=== PATIENT | female | born 1965 | race Caucasian/White ===

== ENCOUNTER 2018-05-04 07:38 | Inpatient (IN) | payer OTHER, BC ==
[~2018-05-04] VITALS: Ht 167.6 cm; Wt 74.4 kg
[2018-05-04 07:45] VITALS: BP_SYST 147
[2018-05-04] MEDS ORDERED: GASTROGRAFIN 120 ML ONE (08:15)
[2018-05-04] MEDS ORDERED: MORPHINE 4 MG/ML INJ. SYRINGE IVP ONE (08:45)
[2018-05-04 08:59] LABS: HEMATOCRIT 34.1 % (36-48); MEAN CORPUSCULAR HEMOGLOBIN 27 pg (27-31); MEAN CORPUSCULAR HGB CONC 32 % (32-36); MEAN CORPUSCULAR VOLUME 83 fL (79.0-98.0); PLATELET COUNT (AUTO) 299 K/uL (130-430)
[2018-05-04 09:08] LABS: CALCIUM 9.7 mg/dL (8.4-11.0); CREATININE 0.93 mg/dL (0.55-1.30); POTASSIUM 3.9 mmol/L (3.5-5.1)
[2018-05-04 09:13] LABS: ALBUMIN 2.5 g/dL (3.4-4.8); TOTAL BILIRUBIN 0.7 mg/dL (0.0-1.0)
[2018-05-04] MEDS ORDERED: LORazepam 2 MG/ML VIAL (FOR ER USE) IVP ONE (09:45)
[2018-05-04 09:46] LABS: ATYPICAL LYMPHOCYTES % 0 % (0-0); BAND % (MANUAL) 0 % (0-6); BASOPHILS % (MANUAL) 0 % (0-2); EOSINOPHILS % (MANUAL) 4 % (0-7); LYMPHOCYTES % (MANUAL) 17 % (20-46); METAMYELOCYTES % 2 % (0-0); MONOCYTES % (MANUAL) 6 % (0-11); MYELOCYTES % 4 % (0-0)
[2018-05-04] MEDS ORDERED: LYR50 PO (10:39)
[2018-05-04] MEDS ORDERED: ONDA4TAB5 PO (10:39)
[2018-05-04] MEDS ORDERED: CAT.1 PO (10:39)
[2018-05-04] MEDS ORDERED: FURO-149 PO (10:39)
[2018-05-04] MEDS ORDERED: CEL20 PO (10:39)
[2018-05-04] MEDS ORDERED: METO-290 PO (10:39)
[2018-05-04] MEDS ORDERED: LANS15CA14 PO (10:39)
[2018-05-04] MEDS ORDERED: HEPA500015 SUBCUT (10:39)
[2018-05-04] MEDS ORDERED: HYDR-4272 PO (10:39)
[2018-05-04] MEDS ORDERED: ASCO500T20 PO (10:39)
[2018-05-04] MEDS ORDERED: NPH,100I SQ (10:39)
[2018-05-04] MEDS ORDERED: VANC250C3 PO (10:39)
[2018-05-04] MEDS ORDERED: FOLI-43 PO (10:39)
[2018-05-04] MEDS ORDERED: CODE10LI PO (10:39)
[2018-05-04] MEDS ORDERED: CHLO473M5 MM (10:39)
[2018-05-04] MEDS ORDERED: ACET-2165 PO (10:39)
[2018-05-04] MEDS ORDERED: LORA-258 PO (10:39)
[2018-05-04] MEDS ORDERED: DIA250 PO (10:39)
[2018-05-04] MEDS ORDERED: LIP10 PO (10:39)
[2018-05-04] MEDS ORDERED: guaiFENesin 200 MG/CODEINE 20 MG/ 10 ML UDC PO PRN (11:30)
[2018-05-04] MEDS ORDERED: PANTOPRAZOLE SODIUM 40 MG TAB PO SCH (11:30)
[2018-05-04] MEDS ORDERED: cloNIDine HCL 0.1 MG TABLET PO PRN (11:30)
[2018-05-04] MEDS ORDERED: CHLORHEXIDINE GLUCONATE 15 ML/DOSE, 480 ML MM SCH (11:30)
[2018-05-04] MEDS ORDERED: ONDANSETRON 4 MG ODT TAB PO PRN (11:30)
[2018-05-04 11:36] VITALS: BP_SYST 138
[2018-05-04] MEDS ORDERED: IPRATROPIUM/ALBUTEROL SULFATE 3 ML AMPUL.NEB (DUONEB) INH PRN (11:45)
[2018-05-04 11:56] VITALS: BP_SYST 138
[2018-05-04 11:58] LABS: BILIRUBIN,URINE NEGATIVE (NEGATIVE); BLOOD, URINE 3+ (NEGATIVE); CLARITY/URINE CLOUDY (CLEAR); COLOR,URINE YELLOW (YELLOW); GLUCOSE,URINE NEGATIVE (NEGATIVE); KETONES,URINE NEGATIVE (NEGATIVE); LEUKOCYTE ESTERASE ,URINE 2+ (NEGATIVE); NITRITE, URINE POSITIVE (NEGATIVE); PROTEIN URINE 2+ (NEGATIVE); UROBILINOGEN,URINE 0.2 (0.2-1.0)
[2018-05-04] MEDS: VANCOMYCIN HCL 250 MG CAPSULE PO SCH ×3 (12:00→17:48)
[2018-05-04 12:05] LABS: BACTERIA,URINE MANY /HPF (None Seen); RBC,URINE 20-50 /HPF (0-3); WBC,URINE 80-100 /HPF (0-3)
[2018-05-04] MEDS: D5LR 1,000 ML IV SCH ×2 (13:24→21:48)
[2018-05-04] MEDS ORDERED: METOCLOPRAMIDE HCL 10 MG TABLET PO SCH (14:00)
[2018-05-04 15:52] VITALS: BP_SYST 95
[2018-05-04] MEDS ORDERED: MORPHINE 4 MG/ML INJ. SYRINGE IVP PRN ×2 (16:00)
[2018-05-04] MEDS ORDERED: ONDANSETRON HCL 4 MG/2 ML VIAL IVP PRN (16:00)
[2018-05-04] MEDS ORDERED: PANTOPRAZOLE SODIUM 40 MG/VIAL (PROTONIX) IVP ONE (16:15)
[2018-05-04] MEDS: METOCLOPRAMIDE HCL 10 MG/2 ML VIAL IVP SCH ×2 (16:37→21:32)
[2018-05-04] MEDS ORDERED: METOCLOPRAMIDE HCL 10 MG/2 ML VIAL IVP ONE (16:45)
[2018-05-04] MEDS ORDERED: LEVOFLOXACIN 500 MG/D5W 100 ML IV ONE (19:01)
[2018-05-04] MEDS: LEVOFLOXACIN 500 MG/D5W 100 ML IV SCH (19:02)
[2018-05-04 20:36] VITALS: BP_SYST 124
[2018-05-04] MEDS: IPRATROPIUM/ALBUTEROL SULFATE 3 ML AMPUL.NEB (DUONEB) INH SCH ×2 (20:36→23:09)
[2018-05-04] MEDS ORDERED: INSULIN REGULAR, HUMAN 100 UNITS/ML, 10 ML VIAL (novoLIN R) SUBCUT PRN (20:45)
[2018-05-04] MEDS ORDERED: DEXTROSE 50% JECT 50 ML DISP.SYRIN IVP PRN (20:45)
[2018-05-04] MEDS: ATORVASTATIN 10 MG TABLET PO SCH (21:00)
[2018-05-04] MEDS: CITALOPRAM HYDROBROMIDE 20 MG TABLET PO SCH (21:00)
[2018-05-04] MEDS: INSULIN NPH 100 UNITS/ML 10 ML VIAL SQ SCH (21:00)
[2018-05-04] MEDS: PREGABALIN 25 MG CAPSULE (LYRICA) PO SCH (21:00)
[2018-05-04] MEDS: PANTOPRAZOLE SODIUM 40 MG/VIAL (PROTONIX) IVP SCH (21:32)
[2018-05-04] MEDS: HEPARIN SODIUM,PORCINE 5000 UNITS/ML VIAL SUBCUT SCH (21:33)
[2018-05-04] MEDS: LORazepam 1 MG TABLET PO PRN (21:47)
[2018-05-05] MEDS: IPRATROPIUM/ALBUTEROL SULFATE 3 ML AMPUL.NEB (DUONEB) INH SCH ×6 (02:19→23:04)
[2018-05-05] MEDS: VANCOMYCIN HCL 250 MG CAPSULE PO SCH ×4 (06:00→18:03)
[2018-05-05] MEDS: MEPERIDINE HCL/PF 100 MG/ML AMP ONE ×4 (06:44→07:50)
[2018-05-05] MEDS ORDERED: MEPERIDINE HCL/PF 100 MG/ML AMP ONE (06:45)
[2018-05-05] MEDS: MIDAZOLAM HCL 5 MG/5 ML VIAL ONE ×9 (06:45→07:56)
[2018-05-05] MEDS: METOCLOPRAMIDE HCL 10 MG/2 ML VIAL IVP SCH ×3 (06:52→22:00)
[2018-05-05 07:59] VITALS: BP_SYST 126
[2018-05-05 08:19] VITALS: BP_SYST 109
[2018-05-05] MEDS: INSULIN NPH 100 UNITS/ML 10 ML VIAL SQ SCH ×2 (08:50→22:18)
[2018-05-05] MEDS: ASCORBIC ACID 500 MG TABLET PO SCH (09:00)
[2018-05-05] MEDS: acetaZOLAMIDE 250 MG TABLET (DIAMOX) PO SCH (09:00)
[2018-05-05] MEDS: PREGABALIN 25 MG CAPSULE (LYRICA) PO SCH ×2 (09:00→21:59)
[2018-05-05] MEDS: FOLIC ACID 1 MG TABLET PO SCH (09:00)
[2018-05-05] MEDS: FUROSEMIDE 40 MG TABLET PO SCH (09:00)
[2018-05-05] MEDS: PANTOPRAZOLE SODIUM 40 MG/VIAL (PROTONIX) IVP SCH ×2 (09:48→21:59)
[2018-05-05] MEDS: HEPARIN SODIUM,PORCINE 5000 UNITS/ML VIAL SUBCUT SCH ×2 (09:50→22:19)
[2018-05-05 11:04] LABS: HEMATOCRIT 31.1 % (36-48); HEMOGLOBIN 9.8 g/dL (12.0-16.0); RED BLOOD CELL COUNT(AUTO) 3.76 MIL/uL (4.2-6.2); WHITE BLOOD COUNT (AUTO) 12.2 K/uL (4.8-10.8)
[2018-05-05 11:05] LABS: BASOPHILS % (AUTO) 0.3 % (0.0-2.0); EOSINOPHILS # (AUTO) 0.1 K/uL (0.0-0.4); EOSINOPHILS % (AUTO) 1.2 % (0.0-4.0); LYMPHOCYTES # (AUTO) 1.5 K/uL (1.0-5.5); LYMPHOCYTES % (AUTO) 12.3 % (20.5-51.5); MEAN CORPUSCULAR HEMOGLOBIN 26 pg (27-31); MEAN CORPUSCULAR HGB CONC 31 % (32-36); MEAN CORPUSCULAR VOLUME 83 fL (79.0-98.0); MONOCYTES # (AUTO) 0.8 K/uL (0.0-1.0); MONOCYTES % (AUTO) 6.6 % (1.7-9.3); NEUTROPHILS # (AUTO) 9.7 K/uL (1.8-7.7); NEUTROPHILS % (AUTO) 79.6 % (40.0-70.0); PLATELET COUNT (AUTO) 274 K/uL (130-430)
[2018-05-05 11:16] LABS: CALCIUM 9.3 mg/dL (8.4-11.0); CREATININE 1.03 mg/dL (0.55-1.30); POTASSIUM 3.6 mmol/L (3.5-5.1)
[2018-05-05 11:23] LABS: INR 1.1 (0.8-1.2); PROTHROMBIN TIME 11.1 SECS (9.5-12.5)
[2018-05-05 12:06] VITALS: BP_SYST 131
[2018-05-05] MEDS: D5LR 1,000 ML IV SCH ×2 (12:10→19:00)
[2018-05-05] MEDS: LEVOFLOXACIN 500 MG/D5W 100 ML IV SCH (16:57)
[2018-05-05 17:04] VITALS: BP_SYST 124
[2018-05-05] MEDS: ACETAMINOPHEN 325 MG TABLET PO PRN (18:23)
[2018-05-05 20:00] VITALS: BP_SYST 109
[2018-05-05] MEDS: ATORVASTATIN 10 MG TABLET PO SCH (21:59)
[2018-05-05] MEDS: CITALOPRAM HYDROBROMIDE 20 MG TABLET PO SCH (21:59)
[2018-05-05] MEDS: LORazepam 1 MG TABLET PO PRN (23:58)
[2018-05-05] MEDS: HYDROcodone/ACETAMIN 5-325 MG TAB (NORCO/ VICODIN) PO PRN (23:59)
[2018-05-06] MEDS: VANCOMYCIN HCL 250 MG CAPSULE PO SCH ×4 (00:26→17:22)
[2018-05-06 00:55] VITALS: BP_SYST 102
[2018-05-06] MEDS: IPRATROPIUM/ALBUTEROL SULFATE 3 ML AMPUL.NEB (DUONEB) INH SCH ×6 (03:00→23:06)
[2018-05-06] MEDS: D5LR 1,000 ML IV SCH ×3 (06:16→16:26)
[2018-05-06] MEDS: METOCLOPRAMIDE HCL 10 MG/2 ML VIAL IVP SCH ×3 (06:17→23:53)
[2018-05-06 07:53] VITALS: BP_SYST 129
[2018-05-06 08:26] LABS: HEMATOCRIT 30.6 % (36-48); HEMOGLOBIN 9.7 g/dL (12.0-16.0); MEAN CORPUSCULAR HEMOGLOBIN 27 pg (27-31); MEAN CORPUSCULAR VOLUME 83 fL (79.0-98.0); RED BLOOD CELL COUNT(AUTO) 3.67 MIL/uL (4.2-6.2); WHITE BLOOD COUNT (AUTO) 12.1 K/uL (4.8-10.8)
[2018-05-06 08:27] LABS: BASOPHILS % (AUTO) 0.8 % (0.0-2.0); LYMPHOCYTES # (AUTO) 2.3 K/uL (1.0-5.5); LYMPHOCYTES % (AUTO) 18.9 % (20.5-51.5); MEAN CORPUSCULAR HGB CONC 32 % (32-36); MONOCYTES # (AUTO) 0.7 K/uL (0.0-1.0); NEUTROPHILS # (AUTO) 8.8 K/uL (1.8-7.7); NEUTROPHILS % (AUTO) 72.3 % (40.0-70.0); PLATELET COUNT (AUTO) 281 K/uL (130-430); RED CELL DISTRIBUTION WIDTH 23.2 % (9.0-15.0)
[2018-05-06 08:28] LABS: BASOPHILS # (AUTO) 0.1 K/uL (0.0-0.2); EOSINOPHILS # (AUTO) 0.2 K/uL (0.0-0.4)
[2018-05-06 08:36] LABS: CALCIUM 9.9 mg/dL (8.4-11.0); CREATININE 0.95 mg/dL (0.55-1.30); POTASSIUM 3.6 mmol/L (3.5-5.1)
[2018-05-06] MEDS: PREGABALIN 25 MG CAPSULE (LYRICA) PO SCH ×2 (08:56→21:58)
[2018-05-06] MEDS: FUROSEMIDE 40 MG TABLET PO SCH (08:57)
[2018-05-06] MEDS: PANTOPRAZOLE SODIUM 40 MG/VIAL (PROTONIX) IVP SCH ×2 (08:57→23:54)
[2018-05-06] MEDS: acetaZOLAMIDE 250 MG TABLET (DIAMOX) PO SCH (08:57)
[2018-05-06] MEDS: FOLIC ACID 1 MG TABLET PO SCH (08:57)
[2018-05-06] MEDS: ASCORBIC ACID 500 MG TABLET PO SCH (08:57)
[2018-05-06] MEDS: HEPARIN SODIUM,PORCINE 5000 UNITS/ML VIAL SUBCUT SCH (09:00)
[2018-05-06] MEDS: INSULIN NPH 100 UNITS/ML 10 ML VIAL SQ SCH (09:07)
[2018-05-06] MEDS: LORazepam 1 MG TABLET PO PRN ×2 (09:35→21:48)
[2018-05-06 12:10] VITALS: BP_SYST 132
[2018-05-06 16:32] VITALS: BP_SYST 130
[2018-05-06] MEDS: ACETAMINOPHEN 325 MG TABLET PO PRN (16:41)
[2018-05-06] MEDS: LEVOFLOXACIN 500 MG/D5W 100 ML IV SCH (16:47)
[2018-05-06] MEDS ORDERED: LR 500 ML IV ONE (17:45)
[2018-05-06] MEDS ORDERED: LOPERAMIDE HCL 2 MG CAPSULE PO PRN (17:45)
[2018-05-06 20:00] VITALS: BP_SYST 121
[2018-05-06] MEDS: HYDROcodone/ACETAMIN 5-325 MG TAB (NORCO/ VICODIN) PO PRN (21:47)
[2018-05-06] MEDS: ATORVASTATIN 10 MG TABLET PO SCH (21:57)
[2018-05-06] MEDS: CITALOPRAM HYDROBROMIDE 20 MG TABLET PO SCH (21:58)
[2018-05-07] VITALS (7 sets, daily range): BP systolic 120–127
[2018-05-07] MEDS: HEPARIN SODIUM,PORCINE 5000 UNITS/ML VIAL SUBCUT SCH ×3 (00:01→21:01)
[2018-05-07] MEDS: INSULIN NPH 100 UNITS/ML 10 ML VIAL SQ SCH ×3 (00:02→21:16)
[2018-05-07] MEDS: VANCOMYCIN HCL 250 MG CAPSULE PO SCH ×4 (00:32→17:08)
[2018-05-07] MEDS: IPRATROPIUM/ALBUTEROL SULFATE 3 ML AMPUL.NEB (DUONEB) INH SCH ×6 (03:00→23:21)
[2018-05-07] MEDS: LORazepam 1 MG TABLET PO PRN ×2 (06:27→17:23)
[2018-05-07] MEDS: METOCLOPRAMIDE HCL 10 MG/2 ML VIAL IVP SCH ×3 (06:36→20:54)
[2018-05-07 07:04] LABS: CALCIUM 9.6 mg/dL (8.4-11.0); CREATININE 0.9 mg/dL (0.55-1.30); POTASSIUM 3.5 mmol/L (3.5-5.1)
[2018-05-07 07:17] LABS: TOTAL IRON BIND. CAPACITY 164 ug/dL (250-450)
[2018-05-07 07:18] LABS: HEMATOCRIT 29.7 % (36-48); HEMOGLOBIN 9.7 g/dL (12.0-16.0); MEAN CORPUSCULAR HEMOGLOBIN 27 pg (27-31); MEAN CORPUSCULAR HGB CONC 33 % (32-36); MEAN CORPUSCULAR VOLUME 84 fL (79.0-98.0); RED BLOOD CELL COUNT(AUTO) 3.56 MIL/uL (4.2-6.2); WHITE BLOOD COUNT (AUTO) 10.3 K/uL (4.8-10.8)
[2018-05-07 07:19] LABS: BASOPHILS # (AUTO) 0.1 K/uL (0.0-0.2); BASOPHILS % (AUTO) 0.5 % (0.0-2.0); EOSINOPHILS # (AUTO) 0.3 K/uL (0.0-0.4); EOSINOPHILS % (AUTO) 2.5 % (0.0-4.0); LYMPHOCYTES # (AUTO) 2.2 K/uL (1.0-5.5); LYMPHOCYTES % (AUTO) 21.1 % (20.5-51.5); MONOCYTES # (AUTO) 0.6 K/uL (0.0-1.0); MONOCYTES % (AUTO) 5.5 % (1.7-9.3); NEUTROPHILS # (AUTO) 7.2 K/uL (1.8-7.7); NEUTROPHILS % (AUTO) 70.4 % (40.0-70.0); PLATELET COUNT (AUTO) 287 K/uL (130-430); RED CELL DISTRIBUTION WIDTH 23.5 % (9.0-15.0)
[2018-05-07] MEDS: FOLIC ACID 1 MG TABLET PO SCH (08:59)
[2018-05-07] MEDS: PANTOPRAZOLE SODIUM 40 MG/VIAL (PROTONIX) IVP SCH ×2 (08:59→20:54)
[2018-05-07] MEDS: ASCORBIC ACID 500 MG TABLET PO SCH (08:59)
[2018-05-07] MEDS: PREGABALIN 25 MG CAPSULE (LYRICA) PO SCH ×2 (08:59→20:55)
[2018-05-07] MEDS: FUROSEMIDE 40 MG TABLET PO SCH (09:00)
[2018-05-07] MEDS: acetaZOLAMIDE 250 MG TABLET (DIAMOX) PO SCH (09:00)
[2018-05-07] MEDS ORDERED: MENTHOL/ZINC OXIDE 113 GM OINT. TP PRN (17:00)
[2018-05-07] MEDS: ACETAMINOPHEN 325 MG TABLET PO PRN (17:07)
[2018-05-07] MEDS: ATORVASTATIN 10 MG TABLET PO SCH (20:55)
[2018-05-07] MEDS: CITALOPRAM HYDROBROMIDE 20 MG TABLET PO SCH (20:55)
[2018-05-07] MEDS: MEROPENEM 500 MG in NS 50 ML IV SCH (20:56)
[2018-05-08] MEDS: IPRATROPIUM/ALBUTEROL SULFATE 3 ML AMPUL.NEB (DUONEB) INH SCH ×3 (03:16→15:58)
[2018-05-08] MEDS: VANCOMYCIN HCL 250 MG CAPSULE PO SCH ×3 (05:16→11:14)
[2018-05-08] MEDS: METOCLOPRAMIDE HCL 10 MG/2 ML VIAL IVP SCH ×2 (05:16→14:00)
[2018-05-08] MEDS: MEROPENEM 500 MG in NS 50 ML IV SCH ×2 (05:21→14:00)
[2018-05-08] MEDS: LORazepam 1 MG TABLET PO PRN (06:24)
[2018-05-08] MEDS: ASCORBIC ACID 500 MG TABLET PO SCH (08:58)
[2018-05-08] MEDS: PREGABALIN 25 MG CAPSULE (LYRICA) PO SCH (08:58)
[2018-05-08] MEDS: FUROSEMIDE 40 MG TABLET PO SCH (08:58)
[2018-05-08] MEDS: PANTOPRAZOLE SODIUM 40 MG/VIAL (PROTONIX) IVP SCH (08:58)
[2018-05-08] MEDS: acetaZOLAMIDE 250 MG TABLET (DIAMOX) PO SCH (08:58)
[2018-05-08] MEDS: FOLIC ACID 1 MG TABLET PO SCH (08:59)
[2018-05-08] MEDS: HEPARIN SODIUM,PORCINE 5000 UNITS/ML VIAL SUBCUT SCH (09:08)
[2018-05-08] MEDS: INSULIN NPH 100 UNITS/ML 10 ML VIAL SQ SCH (09:09)
[2018-05-08 09:41] VITALS: BP_SYST 149
[2018-05-08 12:00] VITALS: BP_SYST 120
[2018-05-08 14:49] VITALS: BP_SYST 120
== END 2018-05-08 16:42 | DRG 919 ==
LOC: SED 07:38 → STU 10:23
PROVIDERS: ADMIT Internal Medicine; ATTEND Internal Medicine
PROC: 5A1955Z Respiratory Ventilation, Greater than 96 Consecutive Hours (ICD-10-PCS; principal; 2018-05-04)
PROC: 0D20XUZ Change Feeding Device in Upper Intestinal Tract, External Approach (ICD-10-PCS; 2018-05-05)
DX: T85.848A Pain due to other internal prosthetic devices, implants and grafts, initial encounter (principal); J15.1 Pneumonia due to Pseudomonas; E43 Unspecified severe protein-calorie malnutrition; J96.90 Respiratory failure, unspecified, unspecified whether with hypoxia or hypercapnia; K94.23 Gastrostomy malfunction; G82.20 Paraplegia, unspecified; N39.0 Urinary tract infection, site not specified; Z99.11 Dependence on respirator [ventilator] status; E11.9 Type 2 diabetes mellitus without complications; E66.01 Morbid (severe) obesity due to excess calories; E78.5 Hyperlipidemia, unspecified; G47.33 Obstructive sleep apnea (adult) (pediatric); G35 Multiple sclerosis; I11.0 Hypertensive heart disease with heart failure; I50.9 Heart failure, unspecified; B96.89 Other specified bacterial agents as the cause of diseases classified elsewhere; F41.9 Anxiety disorder, unspecified; Z16.23 Resistance to quinolones and fluoroquinolones; F17.210 Nicotine dependence, cigarettes, uncomplicated; E86.0 Dehydration; D64.9 Anemia, unspecified; R13.10 Dysphagia, unspecified; Z82.0 Family history of epilepsy and other diseases of the nervous system; Z82.49 Family history of ischemic heart disease and other diseases of the circulatory system; Z83.3 Family history of diabetes mellitus; Z88.0 Allergy status to penicillin; Z79.899 Other long term (current) drug therapy; Z68.26 Body mass index [BMI] 26.0-26.9, adult
CPT/HCPCS: 36415; 43246; 71045; 74240-TC; 80048; 80053; 81000-TC; 82962; 83540-TC; 83550-TC; 85007; 85025; 85027; 85610-TC; 85730-TC; 87070-TC; 87081; 87086; 87186-TC; 87205-TC; 87230-TC; 94002; 94003; 94640; 94760; 96374; 96375; 99285; C9113; G0378; J1644; J1815; J1956; J2060; J2175; J2185; J2250; J2270; J2405; J2765; J7120; J7620; J8597; Q9963

== ENCOUNTER 2018-06-04 15:04 | Inpatient (IN) | payer OTHER, BC ==
[~2018-06-04] VITALS: Ht 167.6 cm; Wt 119.7 kg
[~2018-06-04 15:04] MED LIST: ACET-2165 PO; ASCO500T20 PO; CAT.1 PO; CEL20 PO; CHLO473M5 MM; CODE10LI PO; DIA250 PO; FOLI-43 PO; FURO-149 PO; HEPA500015 SUBCUT; HYDR-4272 PO; LANS15CA14 PO; LIP10 PO; LORA-258 PO; LYR50 PO; METO-290 PO; NPH,100I SQ; ONDA4TAB5 PO; VANC250C3 PO
[2018-06-04 15:05] VITALS: BP_SYST 133
[2018-06-04] MEDS ORDERED: GASTROGRAFIN 120 ML ONE (15:48)
[2018-06-04] MEDS ORDERED: LANS-57 PO (15:57)
[2018-06-04] MEDS ORDERED: INSU100I4 SQ (15:57)
[2018-06-04] MEDS ORDERED: MULT-1100 PO (15:57)
[2018-06-04] MEDS ORDERED: MORPHINE 4 MG/ML INJ. SYRINGE IM ONE (16:00)
[2018-06-04] MEDS ORDERED: LORazepam 2 MG/ML VIAL (FOR ER USE) IM ONE (16:15)
[2018-06-04] MEDS ORDERED: CLOTRIMAZOLE 1% TOPICAL CREAM 15 GM TP ONE (18:30)
[2018-06-04 20:03] VITALS: BP_SYST 115
[2018-06-04] MEDS ORDERED: ONDANSETRON 4 MG ODT TAB PO SCH (20:45)
[2018-06-04] MEDS ORDERED: DEXTROSE 50% JECT 50 ML DISP.SYRIN IVP PRN (20:45)
[2018-06-04] MEDS ORDERED: INSULIN ASPART 1 UNIT SQ SCH (20:45)
[2018-06-04] MEDS ORDERED: METOCLOPRAMIDE HCL 10 MG TABLET PO SCH (20:45)
[2018-06-04] MEDS ORDERED: cloNIDine HCL 0.1 MG TABLET PO PRN (20:45)
[2018-06-04 20:57] VITALS: BP_SYST 119
[2018-06-04 21:11] VITALS: BP_SYST 119
[2018-06-04] MEDS ORDERED: guaiFENesin 200 MG/CODEINE 20 MG/ 10 ML UDC PO PRN (22:15)
[2018-06-04] MEDS ORDERED: CLINDAMYCIN 600 mg/50mL D5W 100 ML IV ONE (22:22)
[2018-06-04] MEDS: D5LR 1,000 ML IV SCH (22:31)
[2018-06-04] MEDS: ATORVASTATIN 10 MG TABLET PO SCH (23:19)
[2018-06-04] MEDS: CITALOPRAM HYDROBROMIDE 20 MG TABLET PO SCH (23:19)
[2018-06-04] MEDS: PREGABALIN 25 MG CAPSULE (LYRICA) PO SCH (23:19)
[2018-06-04] MEDS: HEPARIN SODIUM,PORCINE 5000 UNITS/ML VIAL SUBCUT SCH (23:23)
[2018-06-04] MEDS: INSULIN REGULAR, HUMAN 100 UNITS/ML, 10 ML VIAL (novoLIN R) SUBCUT PRN (23:24)
[2018-06-04 23:26] LABS: BILIRUBIN,URINE NEGATIVE (NEGATIVE); CLARITY/URINE CLEAR (CLEAR); COLOR,URINE YELLOW (YELLOW); GLUCOSE,URINE TRACE (NEGATIVE); KETONES,URINE NEGATIVE (NEGATIVE); LEUKOCYTE ESTERASE ,URINE NEGATIVE (NEGATIVE); NITRITE, URINE NEGATIVE (NEGATIVE); PROTEIN URINE TRACE (NEGATIVE)
[2018-06-04 23:27] LABS: BLOOD, URINE TRACE (NEGATIVE)
[2018-06-04 23:31] LABS: BACTERIA,URINE FEW /HPF (None Seen); WBC,URINE 0-3 /HPF (0-3)
[2018-06-04] MEDS: VANCOMYCIN HCL 250 MG CAPSULE PO SCH (23:43)
[2018-06-04] MEDS: HYDROcodone/ACETAMIN 5-325 MG TAB (NORCO/ VICODIN) PO PRN (23:43)
[2018-06-04] MEDS: LORazepam 1 MG TABLET PO PRN (23:44)
[2018-06-05] MEDS: CLINDAMYCIN 600 mg/50mL D5W 50 ML IV SCH ×4 (00:42→17:57)
[2018-06-05 01:02] VITALS: BP_SYST 114
[2018-06-05] MEDS: VANCOMYCIN HCL 250 MG CAPSULE PO SCH ×2 (06:00→12:30)
[2018-06-05] MEDS: PANTOPRAZOLE SODIUM 40 MG TAB PO SCH (06:36)
[2018-06-05] MEDS: INSULIN REGULAR, HUMAN 100 UNITS/ML, 10 ML VIAL (novoLIN R) SUBCUT PRN ×4 (06:41→22:01)
[2018-06-05 07:50] VITALS: BP_SYST 124
[2018-06-05 07:53] LABS: ALBUMIN 2.2 g/dL (3.4-4.8); CALCIUM 10.5 mg/dL (8.4-11.0); CREATININE 1.01 mg/dL (0.55-1.30); THYROID STIMULATING HORMONE 0.85 uIu/mL (0.34-4.82); TOTAL BILIRUBIN 0.5 mg/dL (0.0-1.0)
[2018-06-05 08:12] LABS: POTASSIUM 3.6 mmol/L (3.5-5.1)
[2018-06-05 08:16] LABS: HEMATOCRIT 30.2 % (36-48); HEMOGLOBIN 9.5 g/dL (12.0-16.0); MEAN CORPUSCULAR HEMOGLOBIN 27 pg (27-31); MEAN CORPUSCULAR VOLUME 85 fL (79.0-98.0); RED BLOOD CELL COUNT(AUTO) 3.55 MIL/uL (4.2-6.2); WHITE BLOOD COUNT (AUTO) 14.4 K/uL (4.8-10.8)
[2018-06-05 08:17] LABS: BASOPHILS # (AUTO) 0.1 K/uL (0.0-0.2); BASOPHILS % (AUTO) 0.6 % (0.0-2.0); EOSINOPHILS # (AUTO) 0.3 K/uL (0.0-0.4); EOSINOPHILS % (AUTO) 2.1 % (0.0-4.0); LYMPHOCYTES # (AUTO) 2.2 K/uL (1.0-5.5); LYMPHOCYTES % (AUTO) 15.4 % (20.5-51.5); MEAN CORPUSCULAR HGB CONC 32 % (32-36); MONOCYTES # (AUTO) 0.6 K/uL (0.0-1.0); MONOCYTES % (AUTO) 4.4 % (1.7-9.3); NEUTROPHILS # (AUTO) 11.1 K/uL (1.8-7.7); PLATELET COUNT (AUTO) 262 K/uL (130-430); RED CELL DISTRIBUTION WIDTH 20.3 % (9.0-15.0)
[2018-06-05] MEDS: PREGABALIN 25 MG CAPSULE (LYRICA) PO SCH ×2 (09:04→21:53)
[2018-06-05] MEDS: MULTIVITS,CA,MINERALS/IRON/FA 1 TABLET PO SCH (09:04)
[2018-06-05] MEDS: FOLIC ACID 1 MG TABLET PO SCH (09:05)
[2018-06-05] MEDS: FUROSEMIDE 40 MG TABLET PO SCH (09:05)
[2018-06-05] MEDS: acetaZOLAMIDE 250 MG TABLET (DIAMOX) PO SCH (09:05)
[2018-06-05] MEDS: ASCORBIC ACID 500 MG TABLET PO SCH (09:05)
[2018-06-05] MEDS: ACETAMINOPHEN 325 MG TABLET PO PRN (09:06)
[2018-06-05] MEDS: HEPARIN SODIUM,PORCINE 5000 UNITS/ML VIAL SUBCUT SCH ×2 (09:08→21:58)
[2018-06-05] MEDS: D5LR 1,000 ML IV SCH (10:59)
[2018-06-05 11:13] LABS: NEUTROPHILS % (AUTO) 77.5 % (40.0-70.0)
[2018-06-05 12:00] VITALS: BP_SYST 124
[2018-06-05 16:00] VITALS: BP_SYST 119
[2018-06-05] MEDS: HYDROcodone/ACETAMIN 5-325 MG TAB (NORCO/ VICODIN) PO PRN (16:37)
[2018-06-05] MEDS: VANCOMYCIN HCL ORAL SOLUTION 250 MG/5 ML, 80 ML GT SCH (17:58)
[2018-06-05 20:00] VITALS: BP_SYST 103
[2018-06-05] MEDS ORDERED: COMMUNICATION ORDER XX ONE (21:00)
[2018-06-05] MEDS: ATORVASTATIN 10 MG TABLET PO SCH (21:53)
[2018-06-05] MEDS: CITALOPRAM HYDROBROMIDE 20 MG TABLET PO SCH (21:53)
[2018-06-05] MEDS: LORazepam 1 MG TABLET PO PRN (21:54)
[2018-06-05] MEDS: INSULIN NPH 100 UNITS/ML 10 ML VIAL SQ SCH (22:00)
[2018-06-06] MEDS: CLINDAMYCIN 600 mg/50mL D5W 50 ML IV SCH ×4 (00:17→17:49)
[2018-06-06] MEDS: VANCOMYCIN HCL ORAL SOLUTION 250 MG/5 ML, 80 ML GT SCH ×4 (00:19→17:49)
[2018-06-06 00:47] VITALS: BP_SYST 107
[2018-06-06] MEDS: D5LR 1,000 ML IV SCH ×3 (00:54→13:32)
[2018-06-06] MEDS: HYDROcodone/ACETAMIN 5-325 MG TAB (NORCO/ VICODIN) PO PRN ×2 (00:55→16:47)
[2018-06-06] MEDS: PANTOPRAZOLE SODIUM 40 MG TAB PO SCH (06:40)
[2018-06-06 07:04] LABS: CALCIUM 10.3 mg/dL (8.4-11.0); CREATININE 1.13 mg/dL (0.55-1.30); POTASSIUM 3.7 mmol/L (3.5-5.1)
[2018-06-06 07:55] VITALS: BP_SYST 124
[2018-06-06 08:10] LABS: HEMOGLOBIN 9.1 g/dL (12.0-16.0); MEAN CORPUSCULAR HEMOGLOBIN 27 pg (27-31); MEAN CORPUSCULAR HGB CONC 32 % (32-36); MEAN CORPUSCULAR VOLUME 85 fL (79.0-98.0); RED BLOOD CELL COUNT(AUTO) 3.31 MIL/uL (4.2-6.2)
[2018-06-06 08:11] LABS: BASOPHILS # (AUTO) 0.1 K/uL (0.0-0.2); BASOPHILS % (AUTO) 0.6 % (0.0-2.0); EOSINOPHILS # (AUTO) 0.4 K/uL (0.0-0.4); EOSINOPHILS % (AUTO) 3.1 % (0.0-4.0); LYMPHOCYTES # (AUTO) 2.4 K/uL (1.0-5.5); LYMPHOCYTES % (AUTO) 19.9 % (20.5-51.5); MONOCYTES # (AUTO) 0.6 K/uL (0.0-1.0); MONOCYTES % (AUTO) 4.7 % (1.7-9.3); NEUTROPHILS # (AUTO) 8.6 K/uL (1.8-7.7); PLATELET COUNT (AUTO) 244 K/uL (130-430)
[2018-06-06] MEDS: acetaZOLAMIDE 250 MG TABLET (DIAMOX) PO SCH (09:05)
[2018-06-06] MEDS: PREGABALIN 25 MG CAPSULE (LYRICA) PO SCH ×2 (09:06→21:22)
[2018-06-06] MEDS: MULTIVITS,CA,MINERALS/IRON/FA 1 TABLET PO SCH (09:06)
[2018-06-06] MEDS: ASCORBIC ACID 500 MG TABLET PO SCH (09:06)
[2018-06-06] MEDS: FUROSEMIDE 40 MG TABLET PO SCH (09:07)
[2018-06-06] MEDS: FOLIC ACID 1 MG TABLET PO SCH (09:08)
[2018-06-06] MEDS: INSULIN NPH 100 UNITS/ML 10 ML VIAL SQ SCH (09:10)
[2018-06-06] MEDS: HEPARIN SODIUM,PORCINE 5000 UNITS/ML VIAL SUBCUT SCH ×2 (09:11→21:21)
[2018-06-06 10:43] LABS: NEUTROPHILS % (AUTO) 71.7 % (40.0-70.0)
[2018-06-06] MEDS: INSULIN REGULAR, HUMAN 100 UNITS/ML, 10 ML VIAL (novoLIN R) SUBCUT PRN (12:18)
[2018-06-06 13:22] VITALS: BP_SYST 136
[2018-06-06] MEDS ORDERED: MUPIROCIN 2% TOPICAL OINTMENT 22 GM NS ONE (14:15)
[2018-06-06] MEDS: CHLORHEXIDINE GLUCONATE 15 ML/DOSE, 480 ML MM SCH (15:28)
[2018-06-06] MEDS ORDERED: NYSTATIN 15 GM TOPICAL POWDER TP ONE (16:15)
[2018-06-06] MEDS ORDERED: MINERAL OIL/PETROLATUM,WHITE 113 GM CREAM.GM. TP ONE (16:15)
[2018-06-06] MEDS ORDERED: MENTHOL/ZINC OXIDE 113 GM OINT. TP PRN (16:15)
[2018-06-06 18:14] VITALS: BP_SYST 101
[2018-06-06] MEDS: MUPIROCIN 2% TOPICAL OINTMENT 22 GM NS SCH (21:00)
[2018-06-06] MEDS: INSULIN NPH 100 UNITS/ML 10 ML VIAL SUBCUT SCH (21:20)
[2018-06-06] MEDS: ATORVASTATIN 10 MG TABLET PO SCH (21:22)
[2018-06-06] MEDS: CITALOPRAM HYDROBROMIDE 20 MG TABLET PO SCH (21:22)
[2018-06-07 01:02] VITALS: BP_SYST 110
[2018-06-07] MEDS: VANCOMYCIN HCL ORAL SOLUTION 250 MG/5 ML, 80 ML GT SCH ×3 (02:14→12:00)
[2018-06-07] MEDS: NYSTATIN 15 GM TOPICAL POWDER TP SCH ×3 (02:15→21:34)
[2018-06-07] MEDS: CLINDAMYCIN 600 mg/50mL D5W 50 ML IV SCH ×5 (03:14→22:25)
[2018-06-07] MEDS: HYDROcodone/ACETAMIN 5-325 MG TAB (NORCO/ VICODIN) PO PRN ×2 (03:34→21:40)
[2018-06-07] MEDS: PANTOPRAZOLE SODIUM 40 MG TAB PO SCH (05:58)
[2018-06-07] MEDS: MULTIVITS,CA,MINERALS/IRON/FA 1 TABLET PO SCH (09:00)
[2018-06-07] MEDS: acetaZOLAMIDE 250 MG TABLET (DIAMOX) PO SCH (09:27)
[2018-06-07] MEDS: MUPIROCIN 2% TOPICAL OINTMENT 22 GM NS SCH ×2 (09:27→21:32)
[2018-06-07] MEDS: PREGABALIN 25 MG CAPSULE (LYRICA) PO SCH ×2 (09:27→21:33)
[2018-06-07] MEDS: FOLIC ACID 1 MG TABLET PO SCH (09:27)
[2018-06-07] MEDS: FUROSEMIDE 40 MG TABLET PO SCH (09:28)
[2018-06-07] MEDS: ASCORBIC ACID 500 MG TABLET PO SCH (09:28)
[2018-06-07] MEDS: MINERAL OIL/PETROLATUM,WHITE 113 GM CREAM.GM. TP SCH (09:29)
[2018-06-07] MEDS: CHLORHEXIDINE GLUCONATE 15 ML/DOSE, 480 ML MM SCH (09:30)
[2018-06-07] MEDS: INSULIN NPH 100 UNITS/ML 10 ML VIAL SUBCUT SCH ×2 (09:35→21:00)
[2018-06-07] MEDS: HEPARIN SODIUM,PORCINE 5000 UNITS/ML VIAL SUBCUT SCH ×2 (09:36→21:49)
[2018-06-07] MEDS ORDERED: IRON SUCROSE COMPLEX 200 MG in NS 100 ML IV ONE (10:00)
[2018-06-07 10:27] LABS: HEMOGLOBIN 9.7 g/dL (12.0-16.0); MEAN CORPUSCULAR VOLUME 84 fL (79.0-98.0); RED BLOOD CELL COUNT(AUTO) 3.46 MIL/uL (4.2-6.2); WHITE BLOOD COUNT (AUTO) 11.5 K/uL (4.8-10.8)
[2018-06-07 10:29] LABS: LYMPHOCYTES % (AUTO) 14.7 % (20.5-51.5); MEAN CORPUSCULAR HEMOGLOBIN 28 pg (27-31); MEAN CORPUSCULAR HGB CONC 34 % (32-36); NEUTROPHILS % (AUTO) 77.5 % (40.0-70.0); PLATELET COUNT (AUTO) 233 K/uL (130-430); RED CELL DISTRIBUTION WIDTH 20.4 % (9.0-15.0)
[2018-06-07 10:30] LABS: BASOPHILS # (AUTO) 0.1 K/uL (0.0-0.2); BASOPHILS % (AUTO) 0.5 % (0.0-2.0); EOSINOPHILS # (AUTO) 0.2 K/uL (0.0-0.4); EOSINOPHILS % (AUTO) 1.9 % (0.0-4.0); LYMPHOCYTES # (AUTO) 1.7 K/uL (1.0-5.5); MONOCYTES # (AUTO) 0.6 K/uL (0.0-1.0); MONOCYTES % (AUTO) 5.4 % (1.7-9.3); NEUTROPHILS # (AUTO) 8.9 K/uL (1.8-7.7)
[2018-06-07 10:48] LABS: CALCIUM 9.9 mg/dL (8.4-11.0); CREATININE 1.03 mg/dL (0.55-1.30)
[2018-06-07] MEDS: FLUCONAZOLE 400 mg/ NS 200 ML IV SCH (10:56)
[2018-06-07] MEDS: D5LR 1,000 ML IV SCH (10:56)
[2018-06-07 11:22] VITALS: BP_SYST 106
[2018-06-07 11:50] VITALS: BP_SYST 106
[2018-06-07] MEDS: INSULIN REGULAR, HUMAN 100 UNITS/ML, 10 ML VIAL (novoLIN R) SUBCUT PRN (12:03)
[2018-06-07 16:29] VITALS: BP_SYST 103
[2018-06-07 19:00] VITALS: BP_SYST 109
[2018-06-07 20:00] VITALS: BP_SYST 109
[2018-06-07] MEDS: CITALOPRAM HYDROBROMIDE 20 MG TABLET PO SCH (21:33)
[2018-06-07] MEDS: ATORVASTATIN 10 MG TABLET PO SCH (21:33)
[2018-06-08 03:30] VITALS: BP_SYST 100
[2018-06-08] MEDS: CLINDAMYCIN 600 mg/50mL D5W 50 ML IV SCH ×3 (03:30→09:00)
[2018-06-08] MEDS: PANTOPRAZOLE SODIUM 40 MG TAB PO SCH (06:21)
[2018-06-08] MEDS: INSULIN REGULAR, HUMAN 100 UNITS/ML, 10 ML VIAL (novoLIN R) SUBCUT PRN ×2 (06:36→12:47)
[2018-06-08 07:42] LABS: CREATININE 1.13 mg/dL (0.55-1.30); POTASSIUM 3.7 mmol/L (3.5-5.1)
[2018-06-08 07:51] VITALS: BP_SYST 115
[2018-06-08] MEDS: D5LR 1,000 ML IV SCH (08:19)
[2018-06-08] MEDS: MULTIVITS,CA,MINERALS/IRON/FA 1 TABLET PO SCH (09:00)
[2018-06-08 09:03] LABS: HEMATOCRIT 27.9 % (36-48); MEAN CORPUSCULAR HEMOGLOBIN 27 pg (27-31); MEAN CORPUSCULAR HGB CONC 32 % (32-36); MEAN CORPUSCULAR VOLUME 85 fL (79.0-98.0); NEUTROPHILS % (AUTO) 70.3 % (40.0-70.0); PLATELET COUNT (AUTO) 224 K/uL (130-430); RED CELL DISTRIBUTION WIDTH 20.7 % (9.0-15.0); WHITE BLOOD COUNT (AUTO) 12.5 K/uL (4.8-10.8)
[2018-06-08 09:04] LABS: BASOPHILS # (AUTO) 0.1 K/uL (0.0-0.2); BASOPHILS % (AUTO) 0.5 % (0.0-2.0); EOSINOPHILS # (AUTO) 0.3 K/uL (0.0-0.4); EOSINOPHILS % (AUTO) 2.4 % (0.0-4.0); LYMPHOCYTES # (AUTO) 2.7 K/uL (1.0-5.5); LYMPHOCYTES % (AUTO) 21.8 % (20.5-51.5); MONOCYTES # (AUTO) 0.6 K/uL (0.0-1.0); NEUTROPHILS # (AUTO) 8.8 K/uL (1.8-7.7)
[2018-06-08] MEDS: FLUCONAZOLE 400 mg/ NS 200 ML IV SCH (09:43)
[2018-06-08] MEDS: MUPIROCIN 2% TOPICAL OINTMENT 22 GM NS SCH (09:45)
[2018-06-08] MEDS: MINERAL OIL/PETROLATUM,WHITE 113 GM CREAM.GM. TP SCH (09:46)
[2018-06-08] MEDS: NYSTATIN 15 GM TOPICAL POWDER TP SCH (09:46)
[2018-06-08] MEDS: PREGABALIN 25 MG CAPSULE (LYRICA) PO SCH (09:48)
[2018-06-08] MEDS: acetaZOLAMIDE 250 MG TABLET (DIAMOX) PO SCH (09:49)
[2018-06-08] MEDS: FUROSEMIDE 40 MG TABLET PO SCH (09:49)
[2018-06-08] MEDS: ASCORBIC ACID 500 MG TABLET PO SCH (09:50)
[2018-06-08] MEDS: FOLIC ACID 1 MG TABLET PO SCH (09:50)
[2018-06-08] MEDS: HEPARIN SODIUM,PORCINE 5000 UNITS/ML VIAL SUBCUT SCH (09:52)
[2018-06-08] MEDS: ACETAMINOPHEN 325 MG TABLET PO PRN (09:58)
[2018-06-08] MEDS: INSULIN NPH 100 UNITS/ML 10 ML VIAL SUBCUT SCH (10:03)
[2018-06-08 12:16] VITALS: BP_SYST 118
[2018-06-08 13:57] VITALS: BP_SYST 121
== END 2018-06-08 14:15 | DRG 393 ==
LOC: SED 15:04 → STU 17:46
PROVIDERS: ADMIT Internal Medicine; ATTEND Internal Medicine
PROC: 5A1945Z Respiratory Ventilation, 24-96 Consecutive Hours (ICD-10-PCS; principal; 2018-06-04)
DX: K94.22 Gastrostomy infection (principal); E43 Unspecified severe protein-calorie malnutrition; L03.311 Cellulitis of abdominal wall; Z99.11 Dependence on respirator [ventilator] status; G82.20 Paraplegia, unspecified; Z68.41 Body mass index [BMI] 40.0-44.9, adult; J96.10 Chronic respiratory failure, unspecified whether with hypoxia or hypercapnia; K94.23 Gastrostomy malfunction; G35 Multiple sclerosis; E78.5 Hyperlipidemia, unspecified; E11.9 Type 2 diabetes mellitus without complications; E66.01 Morbid (severe) obesity due to excess calories; R13.10 Dysphagia, unspecified; G47.33 Obstructive sleep apnea (adult) (pediatric); I11.0 Hypertensive heart disease with heart failure; F19.10 Other psychoactive substance abuse, uncomplicated; I50.9 Heart failure, unspecified; L89.159 Pressure ulcer of sacral region, unspecified stage; D64.9 Anemia, unspecified; Z87.891 Personal history of nicotine dependence; Z88.0 Allergy status to penicillin
CPT/HCPCS: 36415; 71045; 74240-TC; 80048; 80053; 81000-TC; 82962; 83690-TC; 84443-TC; 85025; 87070-TC; 87081; 87186-TC; 94002; 94003; 94760; 96372; 99285; G0378; J1450; J1644; J1756; J1815; J1956; J2060; J2270; J3370; J3490; J7120; Q9963

== ENCOUNTER 2018-06-18 12:07 | Emergency (ER) | payer OTHER, BC ==
[~2018-06-18] VITALS: Ht 167.6 cm; Wt 136.1 kg
[~2018-06-18 12:07] MED LIST changes: +INSU100I4 SQ; +LANS-57 PO; -LANS15CA14 PO; +MULT-1100 PO
--- NOTE | 2018-06-18 12:10 | NUR ---
Arrived via [facility] ambulance due to vent dependence. Patient is here for pain and redness at GT site. Patient to ER bed 6 to gown for evaluation. Side rails up. Report given to Elzbieta HANDLEY.
[2018-06-18 12:11] VITALS: BP_SYST 133
--- NOTE | 2018-06-18 12:40 | NUR ---
Pt presents to ED c/on GT tube malfunction.Pt on vent RT at bedside.
--- NOTE | 2018-06-18 12:46 | NUR ---
ER at bedside examining patient.
--- NOTE | 2018-06-18 13:20 | NUR ---
GT tube flushed without resistance.
[2018-06-18 14:16] LABS: BASOPHILS # (AUTO) 0.1 K/uL (0.0-0.2); BASOPHILS % (AUTO) 0.7 % (0.0-2.0); EOSINOPHILS # (AUTO) 0.4 K/uL (0.0-0.4); HEMATOCRIT 32.6 % (36-48); HEMOGLOBIN 10.2 g/dL (12.0-16.0); LYMPHOCYTES # (AUTO) 2.3 K/uL (1.0-5.5); MEAN CORPUSCULAR HEMOGLOBIN 27 pg (27-31); MEAN CORPUSCULAR HGB CONC 31 % (32-36); MEAN CORPUSCULAR VOLUME 87 fL (79.0-98.0); MONOCYTES # (AUTO) 0.6 K/uL (0.0-1.0); MONOCYTES % (AUTO) 4.1 % (1.7-9.3); NEUTROPHILS # (AUTO) 10.3 K/uL (1.8-7.7); NEUTROPHILS % (AUTO) 75.2 % (40.0-70.0); PLATELET COUNT (AUTO) 277 K/uL (130-430); RED BLOOD CELL COUNT(AUTO) 3.75 MIL/uL (4.2-6.2); RED CELL DISTRIBUTION WIDTH 19.3 % (9.0-15.0); WHITE BLOOD COUNT (AUTO) 13.8 K/uL (4.8-10.8)
[2018-06-18 14:32] LABS: CALCIUM 10.7 mg/dL (8.4-11.0); CREATININE 1.24 mg/dL (0.55-1.30); POTASSIUM 4.3 mmol/L (3.5-5.1)
[2018-06-18 14:36] LABS: ALBUMIN 2.6 g/dL (3.4-4.8); TOTAL BILIRUBIN 0.3 mg/dL (0.0-1.0)
--- NOTE | 2018-06-18 14:50 | NUR ---
pt sleeping no acute resp distress noted
[2018-06-18] MEDS ORDERED: GASTROGRAFIN 120 ML ONE (15:27)
--- NOTE | 2018-06-18 15:40 | NUR ---
GT study done. GT appears patent.
--- NOTE | 2018-06-18 17:30 | NUR ---
Pt's soiled diaper changed.
--- NOTE | 2018-06-18 18:43 | NUR ---
Pt to transported back to [facility].
--- NOTE | 2018-06-18 20:38 | NUR ---
pt stated she soiled herself. pt was cleaned, linen changed. incontinence care completed. Pt re-positioned in a comfortable position.
--- NOTE | 2018-06-18 21:50 | NUR ---
Pt resting comfortably in bed. No acute distress, will continue to monitor.
--- NOTE | 2018-06-18 22:15 | NUR ---
[facility] arrived for patient. Informed nurse that they need to swap gurney with bariatric gurney. Per EMT, will go get bariatric gurney and come back.
--- NOTE | 2018-06-18 23:27 | NUR ---
Called [facility], spoke with Jolly and informed her patient will be going back home. VSS.
--- NOTE | 2018-06-18 23:27 | NUR ---
Patient given written and verbal discharge instructions and verbalizes understanding. ER MD discussed with patient the results and treatment provided. Patient in stable condition. ID arm band removed. No Rx given. Patient educated on pain management and to follow up with PMD. Pain Scale 0. Opportunity for questions provided and answered. Medication side effect fact sheet provided.
[2018-06-18 23:30] VITALS: BP_SYST 121
== END 2018-06-18 23:30 | disposition home or self-care (01) ==
LOC: SED 12:07
DX: Z93.1 Gastrostomy status (principal); R03.0 Elevated blood-pressure reading, without diagnosis of hypertension; J44.9 Chronic obstructive pulmonary disease, unspecified; E11.9 Type 2 diabetes mellitus without complications; E78.5 Hyperlipidemia, unspecified; Z87.39 Personal history of other diseases of the musculoskeletal system and connective tissue; Z86.2 Personal history of diseases of the blood and blood-forming organs and certain disorders involving the immune mechanism; Z88.0 Allergy status to penicillin; Z79.899 Other long term (current) drug therapy
CPT/HCPCS: 36415; 74240; 80053; 83690; 85025; 99284; Q9963; J7030